=== PATIENT | female | born 1960 | race Caucasian/White ===

== ENCOUNTER → 2021-07-28 | Outpatient (CLI) | payer BC ==
[~2021-07-28] MED LIST: ASPIRIN EC81 MG PO; ASPIRIN325 MG PO; ATORVASTATIN CA20 MG PO; BETAPACE 80MG T80 MG PO; CLARITIN10 MG PO; CLOPIDOGREL75 MG PO; CO Q-10100 MG PO; ELIQUIS 5 MG TAB5 MG PO; FUROSEMIDE20 MG PO; LEVAQUIN500 MG PO; LISINOPRIL10 MG PO; MULTI-VITAMIN1 EACH PO; NITROGLYCERIN0.4 MG SL; PATANOL EYEBOTH; TYLENOL WITH C1 EACH PO
== END ==
LOC: HEART 5 07-27 14:30
DX: I08.1 Rheumatic disorders of both mitral and tricuspid valves (principal)
CPT/HCPCS: 93306